=== PATIENT | female | born 1965 | race Caucasian/White ===

== ENCOUNTER → 2016-09-04 | Outpatient (CLI) | payer OTHER | LOC: CIMAGING 13:02 | PROVIDERS: ATTEND Family Medicine | DX: Z12.39 Encounter for other screening for malignant neoplasm of breast (principal); N63 Unspecified lump in breast | CPT/HCPCS: 76641-PO; G0206 ==

== ENCOUNTER 2017-03-17 09:39 | Emergency (ER) | payer OTHER | END 2017-03-17 10:25 | disposition left against medical advice (07) | LOC: CED 09:39 | DX: Z53.21 Procedure and treatment not carried out due to patient leaving prior to being seen by health care provider (principal) ==

== ENCOUNTER 2017-05-13 11:54 | Emergency (ER) | payer OTHER ==
[2017-05-13] MEDS ORDERED: NS 1,000 ML IV ONE ×2 (12:23→13:51)
[2017-05-13] MEDS: ONDANSETRON 4 MG/2 ML VIAL IVP ONE ×2 (12:28→14:02)
--- NOTE | 2017-05-13 12:37 | EDPHY ---
H & P Time Seen by Provider: 05/13/17 12:29 HPI/ROS: CHIEF COMPLAINT: "I think I have the flu " HISTORY OF PRESENT ILLNESS: Patient is a 52-year-old female with a history of asthma. She states last evening she made a poor decision and mixed cleaning solved in her bathtub. This caused her to have an asthma exacerbation. She began to cough frequently. She used nebulized treatments all night to help with her breathing. She subsequently developed headache. She had multiple episodes of nonbloody emesis. She feels extremely dehydrated is concerned she has the flu. Her breathing is now improved. She denies chest pain. No fevers or chills. No flank pain. No dysuria frequency. No abdominal pain currently. No rash. REVIEW OF SYSTEMS: My complete review of systems is negative except as mentioned in the HPI. Past Medical/Surgical History: Includes asthma, Guillain-Boncarbo Past surgical history: Eye surgery Social history: Patient denies smoking. Smoking Status: Never smoked Physical Exam: 37.4, 116/80, 95, 18, 91% on room air GENERAL: Mild acute distress, alert. HEENT: Eyes normal to inspection, normal pharynx, no signs of dehydration. NECK: No thyromegaly, no lymphadenopathy, supple. RESPIRATORY: Clear to auscultation bilaterally, no rales, rhonchi or wheezing. Normal. CVS: Regular rate and rhythm, no rubs, murmurs, or gallops. ABDOMEN: Soft, nontender, nondistended, no organomegaly. Benign. BACK: Normal to inspection, no CVA tenderness. SKIN: Normal color, no rash, warm, dry. No pallor. EXTREMITIES: No pedal edema, no calf tenderness, no Homans sign or cords, no joint swelling. NEURO/PSYCH: Higher functions: Alert and Oriented x3. Normal speech and cognition. Normal mood and affect. Cranial nerves: Normal as tested. Cerebellar: Normal as tested. Good finger to nose, good [id number], normal gait. Peripheral exam: Normal motor exam. Normal sensation. Constitutional: Initial Vital Signs Temperature (C) 37.4 C 05/13/17 12:10 Heart Rate 95 05/13/17 12:10 Respiratory Rate 18 05/13/17 12:10 Blood Pressure 116/80 05/13/17 12:10 O2 Sat (%) 91 L 05/13/17 12:10 O2 Delivery Mode Nasal Cannula Allergies/Adverse Reactions: No Known Allergies Allergy (Verified 05/13/17 12:08) Home Medications: Medication Instructions Recorded Albuterol [Proventil Inhaler HFA 03/30/12 (*)] Aspirin [Aspirin 81mg (OTC)] 03/30/12 Multivitamins [Multivitamin (OTC)] 03/30/12 Hydrocodone/APAP 5/325 [[place] 1 - 2 tab PO Q4 #13 tab 05/13/17 5/325 (RX)] Methotrexate 05/13/17 Ondansetron Odt [Zofran Odt 4 mg 4 mg PO Q4PRN PRN #7 tab 05/13/17 (*)] levOFLOXACIN [Levaquin] 750 mg PO DAILY #10 tab 05/13/17 Medical Decision Making - Diagnostics Imaging Results: Imaging Impressions Chest X-Ray 05/13/17 12:41 Impression: Predominantly interstitial pneumonia. Follow-up radiography is recommended considering the focal area of increased consolidation at the left base. ED Course/Re-evaluation: In the emergency department I discussed possible etiologies with the patient. I answered all her questions. An IV was placed. Patient was given 1 L of normal saline for hydration. She was given Toradol 30 mg IV for headache. Her lungs sounded clear. I do not feel she needed an additional breathing treatment. X-ray was ordered. Laboratory studies were ordered. The [place] [id number] with left shift. Patient was mildly anemic. The patient's chemistry panel was unremarkable. LFTs normal. Influenza screen is negative. Chest x-ray: Interstitial pneumonia. Please refer the dictated report by Dr. Hwang. I discussed the results with the patient. On recheck she stated she was feeling better. She had no abdominal discomfort. Her abdomen was soft, nontender nondistended. She had no signs respiratory distress with clear breath sounds bilaterally. She was given 2nd L of normal saline. The patient was given Levaquin 750 mg IV. 1445: I rechecked the patient. She stated she was feeling much better. She had no respiratory distress. I discussed disposition options with the patient. Patient would prefer to be discharged home rather than admitted. She is given warnings. She will return with worsening symptoms. Differential Diagnosis: My differential includes but is not limited to dehydration, toxic exposure, meningitis, encephalitis, influenza, viral illness, pneumonia, bronchitis, asthma exacerbation, perforation, obstruction - Data Points Laboratory Results: Laboratory Results 05/13/17 12:20 05/13/17 12:20 05/13/17 05/13/17 05/13/17 12:20 12:20 12:20 WBC 14.48 10^3/uL H 10^3/uL (3.80-9.50) RBC 4.17 10^6/uL L 10^6/uL (4.18-5.33) Hgb 13.0 g/dL g/dL (12.6-16.3) Hct 37.3 % L % (38.0-47.0) MCV 89.4 fL fL (81.5-99.8) MCH 31.2 pg pg (27.9-34.1) MCHC 34.9 g/dL g/dL (32.4-36.7) RDW 13.9 % % (11.5-15.2) Plt Count 211 10^3/uL 10^3/uL (150-400) MPV 9.1 fL fL (8.7-11.7) Neut % (Auto) 96.0 % H % (39.3-74.2) Lymph % (Auto) 1.7 % L % (15.0-45.0) [place] % (Auto) 1.5 % L % (4.5-13.0) Eos % (Auto) 0.1 % L % (0.6-7.6) Baso % (Auto) 0.2 % L % (0.3-1.7) Nucleat RBC Rel Count 0.0 % % (0.0-0.2) Absolute Neuts (auto) 13.92 10^3/uL H 10^3/uL (1.70-6.50) Absolute Lymphs (auto) 0.24 10^3/uL L 10^3/uL (1.00-3.00) Absolute Monos (auto) 0.21 10^3/uL L 10^3/uL (0.30-0.80) Absolute Eos (auto) 0.01 10^3/uL L 10^3/uL (0.03-0.40) Absolute Basos (auto) 0.03 10^3/uL 10^3/uL (0.02-0.10) Absolute Nucleated RBC 0.00 10^3/uL 10^3/uL (0-0.01) Immature Gran % 0.5 % % (0.0-1.1) Immature Gran # 0.07 10^3/uL 10^3/uL (0.00-0.10) Sodium 138 mEq/L mEq/L (134-144) Potassium 3.9 mEq/L mEq/L (3.5-5.2) Chloride 102 mEq/L mEq/L (97-110) Carbon Dioxide 22 mEq/l mEq/l (22-31) Anion Gap 14 mEq/L mEq/L (8-16) BUN 13 mg/dL mg/dL (7-23) Creatinine 0.7 mg/dL mg/dL (0.6-1.0) Estimated GFR > 60 Glucose 117 mg/dL H mg/dL (70-100) Calcium 9.1 mg/dL mg/dL (8.5-10.4) Total Bilirubin 0.6 mg/dL mg/dL (0.1-1.4) Conjugated Bilirubin 0.1 mg/dL mg/dL (0.0-0.5) Unconjugated Bilirubin 0.5 mg/dL mg/dL (0.0-1.1) AST 22 IU/L IU/L (14-46) ALT 32 IU/L IU/L (9-52) Alkaline Phosphatase 50 IU/L IU/L (38-126) Total Protein 6.2 g/dL L g/dL (6.3-8.2) Albumin 3.6 g/dL g/dL (3.5-5.0) Lipase 32 IU/L IU/L (23-300) Beta HCG, Qual NEGATIVE Influenza A,B Rapid 05/13/17 12:20 WBC RBC Hgb Hct MCV MCH MCHC RDW Plt Count MPV Neut % (Auto) Lymph % (Auto) [place] % (Auto) Eos % (Auto) Baso % (Auto) Nucleat RBC Rel Count Absolute Neuts (auto) Absolute Lymphs (auto) Absolute Monos (auto) Absolute Eos (auto) Absolute Basos (auto) Absolute Nucleated RBC Immature Gran % Immature Gran # Sodium Potassium Chloride Carbon Dioxide Anion Gap BUN Creatinine Estimated GFR Glucose Calcium Total Bilirubin Conjugated Bilirubin Unconjugated Bilirubin AST ALT Alkaline Phosphatase Total Protein Albumin Lipase Beta HCG, Qual Influenza A,B Rapid NEGATIVE FOR FLU (NEGATIVE) Medications Given: Levofloxacin/Dextrose (Levaquin 750 Mg (Premix)) 150 mls @ 100 mls/hr IV EDNOW ONE PRN Reason: Protocol Stop: 05/13/17 15:22 Last Admin: 05/13/17 14:03 Dose: 150 mls Discontinued Medications Sodium Chloride (Ns) 1,000 mls @ 0 mls/hr IV ONCE ONE PRN Reason: Wide Open Stop: 05/13/17 12:24 Last Admin: 05/13/17 12:27 Dose: 1,000 mls Sodium Chloride (Ns) 1,000 mls @ 0 mls/hr IV ONCE ONE PRN Reason: Wide Open Stop: 05/13/17 13:52 Last Admin: 05/13/17 14:01 Dose: 1,000 mls Ketorolac Tromethamine (Toradol) 30 mg IVP EDNOW ONE Stop: 05/13/17 12:41 Last Admin: 05/13/17 12:45 Dose: 30 mg Morphine Sulfate (Morphine) 4 mg IVP EDNOW ONE Stop: 05/13/17 14:07 Last Admin: 05/13/17 14:12 Dose: 4 mg Ondansetron HCl (Zofran) 4 mg IVP EDNOW ONE Stop: 05/13/17 12:24 Last Admin: 05/13/17 14:02 Dose: 4 mg Departure - Departure Disposition: Home, Routine, Self-Care Clinical Impression: Headache Qualifiers: Headache type: unspecified Headache chronicity pattern: acute headache Intractability: not intractable Qualified Code(s): R51 - Headache Pneumonia Qualifiers: Pneumonia type: due to unspecified organism Laterality: unspecified laterality Lung location: unspecified part of lung Qualified Code(s): J18.9 - Pneumonia, unspecified organism Condition: Good Instructions: Pneumonia (ED) Additional Instructions: Take your entire course of antibiotics. Return with increasing fatigue, cough, persistent fever, worsening nausea vomiting or any other concerns. Referrals: Keely Stark, [Doctor of Osteopathy] - 2-3 days without fail Prescriptions: Hydrocodone/APAP 5/325 [[place] 5/325 (RX)] 1 - 2 tab PO Q4 #13 tab levOFLOXACIN [Levaquin] 750 mg PO DAILY #10 tab Ondansetron Odt [Zofran Odt 4 mg (*)] 4 mg PO Q4PRN PRN #7 tab PRN Reason: For Nausea & Vomiting
[2017-05-13] MEDS ORDERED: KETOROLAC 30 MG/1 ML SDV IVP ONE (12:40)
[2017-05-13 12:45] LABS: % IMMATURE GRANULYOCYTES 0.5 % (0.0-1.1); ABSOLUTE IMMATURE GRANULOCYTES 0.07 10^3/uL (0.00-0.10); ADD DIFF? NO; ADD MORPH? NO; ADD SCAN? NO; ATYPICAL LYMPHOCYTE FLAG 0 (0-99); FRAGMENT RBC FLAG 0 (0-99); HEMATOCRIT 37.3 % (38.0-47.0); LEFT SHIFT FLG 70 (0-99); LIPEMIA HEMOLYSIS FLAG 90 (0-99); MEAN CELL HEMOGLOBIN 31.2 pg (27.9-34.1); MEAN CELL HEMOGLOBIN CONCENTR. 34.9 g/dL (32.4-36.7); MEAN CELL VOLUME 89.4 fL (81.5-99.8); MEAN PLATELET VOLUME 9.1 fL (8.7-11.7); PLATELET CLUMPS FLAG 0 (0-99); PLATELET COUNT 211 10^3/uL (150-400); RED BLOOD CELL COUNT 4.17 10^6/uL (4.18-5.33); RED CELL DISTRIBUTION WIDTH 13.9 % (11.5-15.2)
[2017-05-13 12:53] LABS: ANION GAP 14 mEq/L (8-16); CALCIUM 9.1 mg/dL (8.5-10.4); CARBON DIOXIDE 22 mEq/l (22-31); CHLORIDE 102 mEq/L (97-110); CREATININE 0.7 mg/dL (0.6-1.0); GLOMERULAR FILTRATION RATE > 60; GLUCOSE 117 mg/dL (70-100); POTASSIUM 3.9 mEq/L (3.5-5.2); SODIUM 138 mEq/L (134-144); TOTAL PROTEIN 6.2 g/dL (6.3-8.2)
[2017-05-13 12:54] LABS: ALANINE AMINOTRANSFERASE 32 IU/L (9-52); ALBUMIN 3.6 g/dL (3.5-5.0); ALKALINE PHOSPHATASE 50 IU/L (38-126); ASPARTATE AMINOTRANSFERASE 22 IU/L (14-46); BILIRUBIN,TOTAL 0.6 mg/dL (0.1-1.4); BILIRUBIN-CONJUGATED 0.1 mg/dL (0.0-0.5); BILIRUBIN-UNCONJUGATED 0.5 mg/dL (0.0-1.1)
[2017-05-13 13:53] VITALS: RESP 18
[2017-05-13 14:23] VITALS: PULSE 92; O2SAT 92
[2017-05-13 15:27] VITALS: BP 106/55; TEMP 100
== END 2017-05-13 15:18 | disposition home or self-care (01) ==
LOC: CED 11:54
DX: J18.9 Pneumonia, unspecified organism (principal); J45.909 Unspecified asthma, uncomplicated; R11.10 Vomiting, unspecified; Z79.82 Long term (current) use of aspirin
CPT/HCPCS: 71020-PO; 80048-PO; 80076-PO; 83690-PO; 84703-PO; 85025-PO; 87400-PO; 96374; J1885; J1956; J2405

== ENCOUNTER 2017-05-14 12:13 | Observation (INO) | payer OTHER ==
[2017-05-14] MEDS ORDERED: ONDANSETRON 4 MG/2 ML VIAL IVP ONE (12:41)
[2017-05-14] MEDS ORDERED: NS 1,000 ML IV ONE (12:41)
--- NOTE | 2017-05-14 12:44 | EDPHY ---
H & P Stated Complaint: diagnosed with pneumonia yesterday, feels worse. GU, SOB and sweating Time Seen by Provider: 05/14/17 12:19 HPI/ROS: Chief Complaint: Cough, headache, nausea HPI: 52-year-old woman who is presenting with several days of cough and shortness of breath. She was seen in the emergency department yesterday and was diagnosed with bilateral interstitial pneumonia. Patient was feeling improved but there was some discussion at that time about admitting her. She did have significant nausea vomiting prior to that admission. Patient was sent home with continued to have nausea but no vomiting. She is not drinking any fluids she is afraid she is going to vomit. She has a significant bitemporal headache which she had yesterday but went away after she was seen here. It is not sudden onset. Is not the worst headache of her life. She has had subjective fevers and chills as well. No abdominal pain. No neck stiffness. ROS: 10 point Review of Systems is negative except as noted in the HPI. PMH: Asthma Social History: No smoking, no alcohol, CBD vaporized Family History: non-contributory Physical Exam: Gen: Awake, Alert, No Distress HEENT: Nose: no rhinorrhea Eyes: PERRLA, EOMI Mouth: Dry mucous membranes Neck: Supple, no JVD Chest: nontender, bilateral lower zone crackles Heart: S1, S2 normal, no murmur Abd: Soft, non-tender, no guarding Back: no CVA tenderness, no midline tenderness Ext: no edema, non-tender Skin: no rash Neuro: CN II-XII intact, Sensation grossly intact, Strength 5/5 in bilateral upper and lower extremities - Personal History LMP (Females 10-55): Irregular - Medical/Surgical History Hx Asthma: Yes Hx Chronic Respiratory Disease: No Hx Diabetes: No Hx Cardiac Disease: No Hx Renal Disease: No Hx Cirrhosis: No Hx Alcoholism: Yes Hx HIV/AIDS: No Hx Splenectomy or Spleen Trauma: No Other PMH: anxiety; cataract removal bilat; caracations bilat eyes w/ bilat surgery; GuillainBarr - Social History Smoking Status: Never smoked Constitutional: Initial Vital Signs Temperature (C) 36.9 C 05/14/17 12:26 Heart Rate 66 05/14/17 12:26 Respiratory Rate 18 05/14/17 12:26 Blood Pressure 116/67 1218/17 12:26 O2 Sat (%) 95 05/14/17 12:26 O2 Delivery Mode Room Air O2 (L/minute) 2 Allergies/Adverse Reactions: No Known Allergies Allergy (Verified 05/14/17 12:25) Home Medications: Medication Instructions Recorded Albuterol [Proventil Inhaler HFA 03/30/12 (*)] Aspirin [Aspirin 81mg (OTC)] 03/30/12 Multivitamins [Multivitamin (OTC)] 03/30/12 Hydrocodone/APAP 5/325 [[place] 1 - 2 tab PO Q4 #13 tab 05/13/17 5/325 (RX)] Methotrexate 05/13/17 Ondansetron Odt [Zofran Odt 4 mg 4 mg PO Q4PRN PRN #7 tab 05/13/17 (*)] levOFLOXACIN [Levaquin] 750 mg PO DAILY #10 tab 05/13/17 Medical Decision Making - Diagnostics EKG Interpretation: ECG time 1:41 p.m., sinus rhythm with a rate of 68, normal axis, normal intervals, no acute ST or T-wave changes. Impression normal ECG. ED Course/Re-evaluation: Patient is having episodes of dropping her oxygen saturations to the 70s with a good waveform here. She has been started on 2 L nasal cannula. She is clinically dehydrated. Will place an IV. Repeat blood test. Plan for transfer to [facility] for further care. She is not yet due for her next dose of Levaquin. Patient is complaining of chest pain. Her ECG is normal. Case discussed with Bobbi Chacon, hospitalist. Will admit to Dr. Mcgee for further care. - Data Points Laboratory Results: Laboratory Results 05/14/17 12:50 05/14/17 12:50 05/14/17 05/14/17 12:50 12:50 WBC 6.51 10^3/uL D 10^3/uL (3.80-9.50) RBC 3.98 10^6/uL L 10^6/uL (4.18-5.33) Hgb 12.4 g/dL L g/dL (12.6-16.3) Hct 36.2 % L % (38.0-47.0) MCV 91.0 fL fL (81.5-99.8) MCH 31.2 pg pg (27.9-34.1) MCHC 34.3 g/dL g/dL (32.4-36.7) RDW 14.0 % % (11.5-15.2) Plt Count 174 10^3/uL 10^3/uL (150-400) MPV 8.7 fL fL (8.7-11.7) Neut % (Auto) 86.1 % H % (39.3-74.2) Lymph % (Auto) 8.0 % L % (15.0-45.0) [place] % (Auto) 3.7 % L % (4.5-13.0) Eos % (Auto) 1.7 % % (0.6-7.6) Baso % (Auto) 0.2 % L % (0.3-1.7) Nucleat RBC Rel Count 0.0 % % (0.0-0.2) Absolute Neuts (auto) 5.61 10^3/uL 10^3/uL (1.70-6.50) Absolute Lymphs (auto) 0.52 10^3/uL L 10^3/uL (1.00-3.00) Absolute Monos (auto) 0.24 10^3/uL L 10^3/uL (0.30-0.80) Absolute Eos (auto) 0.11 10^3/uL 10^3/uL (0.03-0.40) Absolute Basos (auto) 0.01 10^3/uL L 10^3/uL (0.02-0.10) Absolute Nucleated RBC 0.00 10^3/uL 10^3/uL (0-0.01) Immature Gran % 0.3 % % (0.0-1.1) Immature Gran # 0.02 10^3/uL 10^3/uL (0.00-0.10) Sodium 141 mEq/L mEq/L (134-144) Potassium 3.9 mEq/L mEq/L (3.5-5.2) Chloride 104 mEq/L mEq/L (97-110) Carbon Dioxide 24 mEq/l mEq/l (22-31) Anion Gap 13 mEq/L mEq/L (8-16) BUN 8 mg/dL mg/dL (7-23) Creatinine 0.7 mg/dL mg/dL (0.6-1.0) Estimated GFR > 60 Glucose 81 mg/dL mg/dL (70-100) Calcium 9.0 mg/dL mg/dL (8.5-10.4) Medications Given: Discontinued Medications Acetaminophen (Tylenol) 1,000 mg PO EDNOW ONE Stop: 05/14/17 13:16 Last Admin: 05/14/17 13:21 Dose: 1,000 mg Sodium Chloride (Ns) 1,000 mls @ 0 mls/hr IV ONCE ONE; Wide Open PRN Reason: Protocol Stop: 05/14/17 12:42 Last Admin: 05/14/17 12:51 Dose: 1,000 mls Ondansetron HCl (Zofran) 4 mg IVP EDNOW ONE Stop: 05/14/17 12:42 Last Admin: 05/14/17 12:51 Dose: 4 mg Departure - Departure Disposition: [facility] Clinical Impression: Pneumonia, Dehydration Condition: Fair
[2017-05-14 13:01] LABS: % IMMATURE GRANULYOCYTES 0.3 % (0.0-1.1); ABSOLUTE IMMATURE GRANULOCYTES 0.02 10^3/uL (0.00-0.10); ADD DIFF? NO; ADD MORPH? NO; ADD SCAN? NO; ATYPICAL LYMPHOCYTE FLAG 0 (0-99); FRAGMENT RBC FLAG 0 (0-99); HEMATOCRIT 36.2 % (38.0-47.0); HEMOGLOBIN 12.4 g/dL (12.6-16.3); LEFT SHIFT FLG 10 (0-99); LIPEMIA HEMOLYSIS FLAG 90 (0-99); MEAN CELL HEMOGLOBIN 31.2 pg (27.9-34.1); MEAN CELL HEMOGLOBIN CONCENTR. 34.3 g/dL (32.4-36.7); MEAN PLATELET VOLUME 8.7 fL (8.7-11.7); PLATELET CLUMPS FLAG 0 (0-99); PLATELET COUNT 174 10^3/uL (150-400); RED BLOOD CELL COUNT 3.98 10^6/uL (4.18-5.33)
[2017-05-14] MEDS ORDERED: ACETAMINOPHEN 500 MG TAB PO ONE (13:15)
[2017-05-14 13:16] LABS: ANION GAP 13 mEq/L (8-16); CARBON DIOXIDE 24 mEq/l (22-31); CHLORIDE 104 mEq/L (97-110); CREATININE 0.7 mg/dL (0.6-1.0); GLOMERULAR FILTRATION RATE > 60; GLUCOSE 81 mg/dL (70-100); POTASSIUM 3.9 mEq/L (3.5-5.2); SODIUM 141 mEq/L (134-144)
--- NOTE | 2017-05-14 13:42 | CPEKG ---
Heart Rate: 68 RR Interval: 882 P-R Interval: 133 QRSD Interval: 76 QT Interval: 416 QTC Interval: 443 P [place]: 0 QRS [place]: 15 T Wave [place]: 44 EKG Severity - NORMAL ECG - EKG Impression: SINUS RHYTHM Electronically Signed By: Segun Cao 14-May-2017 14:47:23
[2017-05-14] MEDS ORDERED: ONDANSETRON DISINTEGRATING 4 MG TAB PO PRN (17:11)
[2017-05-14] MEDS ORDERED: ACETAMINOPHEN 325 MG TAB PO PRN (17:11)
[2017-05-14] MEDS ORDERED: TEMAZEPAM 15 MG CAP PO PRN (17:11)
[2017-05-14] MEDS ORDERED: oxyCODONE IR 5 MG TAB PO PRN (17:11)
[2017-05-14] MEDS: MOXIFLOXACIN 400 MG TAB PO SCH (17:44)
[2017-05-14] MEDS: D5W 1/2 NS 1,000 ML IV SCH (17:45)
--- NOTE | 2017-05-14 17:45 | GHP ---
[f rep st] HISTORY AND PHYSICAL DATE OF ADMISSION: 05/14/2017 CHIEF COMPLAINT: Pneumonia, cannot take care of herself. HISTORY OF PRESENT ILLNESS: This is a 52-year-old female, who [place] [facility] [place] w ith an interstitial pneumonia. She was sent home with Levaquin; however, she has really continued to feel poorly and thus re[place] [facility] [place] This all began Sunday evening when she was using precious e chemicals to clean her bathroom. She began throwing up, had vomiting nonstop Sunday night to Sun day. About the same time she started to have intermittent fevers and chills. She has mild cough, as well as chest tightness, which is completely resolved. She still feels nauseous and is complaining of a bad headache. 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 However, she has no change in any neurologic symptoms. PAST MEDICAL/SURGICAL HISTORY: 1. Asthma. 2. Guillain-Garner about 3 years ago. 3. Dermatitis on methotrexate. MEDICATIONS: Please see medication reconciliation. ALLERGIES: No known drug allergies. SOCIAL HISTORY: Her is present. She has significant social stressors including her father this year, her best friend 3 weeks ago. She is the primary caregiver for her mother, who lives in [place]. 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 FAMILY HISTORY: Mother had a stroke. REVIEW OF SYSTEMS: A 10-point review of systems is conducted and is negative except per HPI. PHYSICAL EXAMINATION: VITAL SIGNS: Blood pressure is 111/58, heart rate 68, respiration rate 18, sa turating 93% on 2 L, temperature is 37.2. GENERAL: The patient is a very pleasant female, who appea rs somewhat tearful intermittently. Otherwise no acute distress. HEENT: Normocephalic, atraumatic. CARDIOVASCULAR: Regular rate and rhythm. No murmurs, rubs, or gallops. PULMONARY: Lungs clear t o auscultation bilaterally. ABDOMEN: Soft, nontender, nondistended. : No Mayer. SKIN: Mild de rmatitis in her right forearm. NEUROLOGIC: Alert and oriented x3. Cranial nerves 2-12 are intact. She has diminished light touch in her left foot. Motor is 5/5 and symmetric. PSYCHIATRIC: Normal m ood and affect. LABORATORY DATA: Hemoglobin is 12. Basic metabolic panel is normal. DATA: 1. I discussed this with Bobbi Chacon. 2. I personally viewed and interpreted her chest x-ray. This shows an interstitial pneumonia. 3. ECG, which I personally viewed and interpreted, shows normal sinus rhythm. It is a normal EKG. IMPRESSION AND PLAN: 1. Gastritis: Seems to have resolved. We will send GI panel if she has any diarrhea, which she has not had. Otherwise supportive measures, including Zofran, IV fluids. Advance diet as tolerated. 2. Interstitial pneumonia: Aspiration versus viral. Place her on droplet precautions. We will sen d respiratory panel. We will change her antibiotics to moxifloxacin for both atypical coverage as we ll as better anaerobic coverage. Blood cultures were sent. 3. Headache: Seems most likely related to dehydration. We will treat with Tylenol, ibuprofen, oxyc odone as needed. No evidence of meningitis. 4. Exhaustion: I think this is playing a big part in her overall presentation and need for admissio n. She has significant social stressors. Her is involved and very supportive. /[id number]/MODL
[2017-05-14] MEDS: HYDROmorphone HCL/NS/PF 0.4 MG/2 ML SYR IVP PRN ×2 (17:56→21:20)
[2017-05-14] MEDS ORDERED: ALBUTEROL 200 PUFFS/18 GM MDI IH PRN (21:00)
[2017-05-15] MEDS: ONDANSETRON 4 MG/2 ML VIAL IVP PRN ×2 (02:57→19:37)
[2017-05-15] MEDS: IBUPROFEN 200 MG TAB PO PRN ×2 (02:57→09:20)
[2017-05-15] MEDS: HYDROmorphone HCL/NS/PF 0.4 MG/2 ML SYR IVP PRN ×4 (05:06→22:49)
[2017-05-15] MEDS: D5W 1/2 NS 1,000 ML IV SCH (07:09)
[2017-05-15] MEDS: ASPIRIN EC 81 MG TAB PO SCH (09:17)
[2017-05-15] MEDS: MOXIFLOXACIN 400 MG TAB PO SCH (09:17)
--- NOTE | 2017-05-15 10:03 | ASMTCASEMG ---
Living Arrangements What is your living Answers: With Partner arrangement? Who do you live with? Type Of Residence What kind of residence do Answers: House you live in? Discharge Plan Comments Coordination Status Comments Notes: Patient is a 52yo female who was diagnosed with interstitial pneumonia [place] [facility] [place] and [place] with K[place]al. She continued to feel poorly and subsequently re-presents with fever, chills, vomiting, and a mild cough. Patient has had many social stressors including her father passing away, her best friend 3 weeks ago and she is the primary caregiver for her mother. No therapies have been ordered. Patient most likely will d/c independent. CM available if needs arise. Date Signed: 05/15/2017 10:03 AM Electronically Signed By:Zoë Montes De Oca LCSW
[2017-05-15] MEDS ORDERED: ALBUTEROL 200 PUFFS/18 GM MDI IH PRN (10:15)
--- NOTE | 2017-05-15 14:11 | HOSPPROG ---
Hospitalist Progress Note Assessment/Plan: 52 yo F with hx of RAD and episode of guillane-barre about 2 years ago presenting with interstitial pna/pneumonitis and n/v #n/v: largely resolved, she is tolerating clears though has not gotten much of an appetite back yet. Presumed gastritis versus gastroenteritis. Will continue to advance diet as tolerated. # coronavirus: likely underlying etiology for her respiratory sxs--she is on droplet precautions for now # interstitial infiltrates: noted on review of cxr to have bilateral infiltrates --pneumonitis versus pna. Will treat for possible aspiration pna on top of viral respiratory illness as above with course of moxifloxacin--had been on levaquin prior to admission. # Headache: suspect this is part of her viral symptomatology, largely controlled with ibuprofen and apap # dispo: observation status, likely will be ready for dc on 05/16 Patient new to my care. Old records reviewed and summarized as above. Care plan reviewed with patients present at bedside. Subjective: no significant overnight events, patient notes she feels better but is still tired and has no appetite, has not vomited today Objective: Vital Signs Temp Pulse Resp BP Pulse Ox 37.1 C 64 12 102/58 L 87 L 05/15/17 11:35 05/15/17 11:35 05/15/17 09:52 05/15/17 11:35 05/15/17 11:39 Microbiology 05/14/17 21:43 Respiratory Panel (PCR) - Final Nasal, Sinus - Swab Coronavirus Hku1 Detected 05/14/17 05/15/17 05/16/17 05:59 05:59 05:59 Intake Total 1835 Balance 1835 awake alert mild distress anicteric op clear rrr no mrg cta b soft nt nd no cce warm dry well perfused oriented appropriate ICD10 Worksheet Patient Problems: Problems Problem Status Onset Dehydration Acute Pneumonia Acute
[2017-05-15] MEDS ORDERED: LORazepam 0.5 MG TAB PO ONE (21:45)
[2017-05-16] MEDS ORDERED: LORazepam 0.5 MG TAB PO ONE (00:15)
[2017-05-16] MEDS: ASPIRIN EC 81 MG TAB PO SCH (07:16)
[2017-05-16] MEDS: MOXIFLOXACIN 400 MG TAB PO SCH (07:17)
[2017-05-16] MEDS: IBUPROFEN 200 MG TAB PO PRN (07:17)
--- NOTE | 2017-05-16 08:41 | HOSPPROG ---
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 Today is my first encounter with the patient, chart reviewed. #n/v: -tolerating clears, but not eating well # coronavirus: likely underlying etiology for her respiratory sxs--she is on droplet precautions for now # interstitial infiltrates: -blood cx show no growth -chest xray shows interstitial pneumonitis vs pna -moxifloxacin #headache -suspect this is from the viral illness #asthma -hx of this/ she has some expiratory wheezing #Plan: of feeling better after lunch, will dc her home. Still has a headache and is tired, but anxious to go home. Subjective: Julianna is feeling exhausted and has a headache, but feels some improvement since admission. Objective: Vital Signs Temp Pulse Resp BP Pulse Ox 37.3 C 68 16 108/54 L 87 L 05/16/17 08:00 05/16/17 08:00 05/16/17 08:00 05/16/17 08:00 05/16/17 08:00 Microbiology 05/14/17 21:43 Respiratory Panel (PCR) - Final Nasal, Sinus - Swab Coronavirus Hku1 Detected 05/15/17 05/16/17 05/17/17 05:59 05:59 05:59 Intake Total 1835 1350 Balance 1835 1350 - Physical Exam Constitutional: uncomfortable Eyes: PERRL Ears, Nose, Mouth, Throat: hearing normal Cardiovascular: regular rate and rhythym Respiratory: no respiratory distress, expiratory wheeze, rhonchi Gastrointestinal: normoactive bowel sounds Skin: warm Musculoskeletal: full muscle strength Neurologic: AAOx3 Psychiatric: interacting appropriately, not anxious ICD10 Worksheet Patient Problems: Problems Problem Status Onset Dehydration Acute Pneumonia Acute
[2017-05-16] MEDS: D5W 1/2 NS 1,000 ML IV SCH (09:19)
[2017-05-16 11:50] VITALS: BP 115/66; PULSE 65; RESP 18; TEMP 98.6; O2SAT 89
--- NOTE | 2017-05-16 16:28 | ASDISCHSUM ---
Discharge Information Plan Status:Home with No Needs Medically Cleared to Leave:05/15/2017 Discharge Date:05/16/2017 04:12 PM CM D/C Disposition: ADT D/C Disposition:Home, Routine, Self-Care Projected Discharge Date:05/16/2017 12:00 AM Transportation at D/C: Discharge Delay Reason: Follow-Up Date:05/16/2017 12:00 AM Discharge Slot: Final Diagnosis: Placement Information Patient Contact Information Contact Name:JULIAN Relationship:Life Partner Address:[address] Work Phone: City:[place] Phone: State/Zip Code:[place] [address] Email: Financial Information Financial Class:HMO and PPO Plans Primary Plan Desc:[facility] [employer] Primary Plan Number:[id number] Secondary Plan Desc: Secondary Plan Number: Assessment Information [facility] Initial CM Assessment Living Arrangements What is your living Answers: With Partner arrangement? Who do you live with? Type Of Residence What kind of residence do Answers: House you live in? Discharge Plan Comments Coordination Status Comments Notes: Patient is a 52yo female who [place] [facility] [place] with Levaquin. She continued to feel poorly and subsequently re-presents with fever, chills, vomiting, and a mild cough. Patient has had many social stressors including her father passing away, her best friend 3 weeks ago and she is the primary caregiver for her mother. No therapies have been ordered. Patient most likely will d/c independent. CM available if needs arise. Date Signed: 05/15/2017 10:03 AM Electronically Signed By:Zoë Montes De Oca LCSW Intervention Information
--- NOTE | 2017-05-17 00:43 | GDS ---
[f rep st] DISCHARGE SUMMARY DISCHARGE DIAGNOSES: 1. Nausea and vomiting. 2. Coronavirus, respiratory virus. 3. Interstitial infiltrates. 4. Headache. 5. Asthma. HISTORY OF PRESENT ILLNESS: Briefly, the patient is a 52-year-old with a history of reactive airway disease and episode of Guillain-Dunseith about 2 years ago. She presented with interstitial pneumonia, pneumonitis, nausea, and vomiting. During her stay, she was given supportive care with IV fluids as well as antibiotics. She is feeling markedly better today and will be discharged home to further fol low up with her primary care provider. HOSPITAL COURSE: 1. Nausea and vomiting. Tolerating clears and appetite is improving. 2. Coronavirus. This is likely the etiology of her respiratory symptoms. She was placed on droplet precautions. 3. Interstitial infiltrates. Her blood culture shows no growth. Her chest x-ray shows interstitial pneumonitis. She was started on moxifloxacin with improvement. 4. Headache, improved. 5. Asthma. She has a history of this. She did have some expiratory wheezing earlier today. DISCHARGE CONDITION: Stable. Blood pressure is 115/66, heart rate 65, respiratory rate is 18, O2 sa turation on room air 89%. Temperature is 37 degrees Celsius. MEDICATIONS AT DISCHARGE: Please see the EMR. DISCHARGE INSTRUCTIONS: 1. To follow up with her primary care provider the end of next week to check her oxygen levels. 2. To get a repeat chest x-ray in 6 weeks. 3. If she develops fever, chills, or worsening shortness of breath, return to the ER. /[id number]/MODL
== END 2017-05-16 16:12 | disposition home or self-care (01) ==
LOC: CED 12:13 → CEDHOLD 13:33 → F3E 15:30
PROVIDERS: ADMIT Student in an Organized Health Care Education/Training Program; ATTEND Hospitalist
PROC: 3E0337Z Introduction of Electrolytic and Water Balance Substance into Peripheral Vein, Percutaneous Approach (ICD-10-PCS; principal; 2017-05-14)
DX: R11.2 Nausea with vomiting, unspecified (principal); J84.9 Interstitial pulmonary disease, unspecified; B34.2 Coronavirus infection, unspecified; R51 Headache; E86.9 Volume depletion, unspecified; J45.909 Unspecified asthma, uncomplicated; L30.9 Dermatitis, unspecified; Z86.69 Personal history of other diseases of the nervous system and sense organs
CPT/HCPCS: 71020; 93005; 96361; 96374; 99285; G0378; 80048-PO; 85025-PO; J1170; J2405

== ENCOUNTER → 2017-10-04 | Outpatient (CLI) | payer OTHER | LOC: CIMAGING 09:53 | PROVIDERS: ATTEND Family Medicine | DX: Z12.31 Encounter for screening mammogram for malignant neoplasm of breast (principal); Z80.3 Family history of malignant neoplasm of breast ==